=== PATIENT | male | born 1985 | race Caucasian/White ===

== ENCOUNTER 2017-10-23 08:28 | Emergency (ER) | payer SELFPAY ==
[~2017-10-23] VITALS: Ht 177.8 cm; Wt 70.3 kg
[2017-10-23 08:55] VITALS: BP 108/67
--- NOTE | 2017-10-23 08:57 | RAD ---
Left shoulder, 3 views, 10/23/2017: History: Pain, injury No fracture or dislocation is identified. The periarticular soft tissues are unremarkable. IMPRESSION: No acute abnormality is detected.
[2017-10-23] MEDS ORDERED: INSU100V13 SQ (09:09)
[2017-10-23] MEDS ORDERED: INSU100C4 SQ (09:09)
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
== END 2017-10-23 09:30 | disposition home or self-care (01) ==
LOC: ER 08:28
DX: S40.012A Contusion of left shoulder, initial encounter (principal); E10.9 Type 1 diabetes mellitus without complications; F12.10 Cannabis abuse, uncomplicated; Y08.89XA Assault by other specified means, initial encounter; Y93.89 Activity, other specified; Y92.89 Other specified places as the place of occurrence of the external cause; Y99.8 Other external cause status
CPT/HCPCS: 73030; 99284